=== PATIENT | male | born 1955 | race Hispanic/Latino ===

== ENCOUNTER 2018-09-04 20:25 | Emergency (ER) | payer BC ==
[2018-09-04] MEDS ORDERED: IBUPROFEN 800 MG TAB ONE (21:28)
== END 2018-09-04 21:33 | disposition home or self-care (01) ==
LOC: EDH 20:25
DX: S43.101A Unspecified dislocation of right acromioclavicular joint, initial encounter (principal); S40.011A Contusion of right shoulder, initial encounter; W18.39XA Other fall on same level, initial encounter; Y93.89 Activity, other specified; Y92.89 Other specified places as the place of occurrence of the external cause; Y99.8 Other external cause status
CPT/HCPCS: 73030